=== PATIENT | female | born 1935 | race Caucasian/White ===

== ENCOUNTER → 2020-08-15 | Outpatient (CLI) | payer MEDICARE ==
[2020-06-24 15:00] VITALS: BP 132/50
[~2020-08-15] MED LIST: AMLO-186 PO; ASPI-886 PO; CALC500T54 PO; CITA40TA5 PO; DILT120C99 PO; FAMO-63 PO; LEVO125T5 PO; LOSA100T14 PO; REGADENOSON 0.4 MG/5 ML DISP.SYRIN. IV ONE; Vit D PO
--- NOTE | 2020-08-15 12:20 | CARD ---
MR#: [id number] Date of Study: 08/15/2020 Ordering Physician: STANLEY PERERA, Referring Physician: STANLEY PERERA Tech: Pamela Moran [facility] APPROVED REPORT EXAM: Two-dimensional and M-mode echocardiogram with Doppler and color Doppler. Other Information Quality : AverageHR: 98bpm Rhythm : PVC's INDICATION Chest Pain RISK FACTORS Hypertension 2D DIMENSIONS RVDd3.1 (2.9-3.5cm)Left Atrium(2D)3.6 (1.6-4.0cm) IVSd1.2 (0.7-1.1cm)Aortic Root(2D)2.8 (2.0-3.7cm) LVDd3.6 (3.9-5.9cm)LVOT Diameter1.9 (1.8-2.4cm) PWd1.1 (0.7-1.1cm)LVDs2.8 (2.5-4.0cm) FS (%) 23.3 %SV25.9 ml LVEF(%)47.6 (>50%) Aortic Valve AoV Peak Eder.136.6cm/Alexsandra Peak GR.9.3mmHg LVOT Peak Eder.98.3cm/sAVA (VMAX)2.00cm2 Mitral Valve MV E Hkfmkgzn610.8cm/sMV DECEL PQZD677te MV A Yepjgfye06.4cm/sE/A Ratio4.0 Pulmonary Valve PV Peak Esrribmx49.0cm/s Tricuspid Valve TR P. Djffjroe005eq/sTR Peak Gr.31mmHg LEFT VENTRICLE The left ventricle is normal size. There is normal left ventricular wall thickness. The left ventricu lar systolic function is normal and the ejection fraction is within normal range. Estimated ejection fraction 60-65%. There is normal LV segmental wall motion. Tissue Doppler imaging reveals moderate le ft ventricular diastolic dysfunction. No left ventricle thrombus noted on this study. RIGHT VENTRICLE The right ventricle is normal size. There is normal right ventricular wall thickness. The right ventr icular systolic function is normal. ATRIA The left atrium is borderline dilated. The right atrium size is normal. Cannot rule out small atrial level defect/shunt based on color doppler evaluation. Agitated saline was not administered. AORTIC VALVE The aortic valve is not well visualized. Cannot rule out partial bicuspid valve. Doppler and Color Fl ow revealed no significant aortic regurgitation. There is no significant aortic valvular stenosis. MITRAL VALVE The mitral valve is normal in structure and function. There is no evidence of mitral valve prolapse. There is no mitral valve stenosis. Doppler and Color Flow revealed no mitral valve regurgitation note d. TRICUSPID VALVE The tricuspid valve is normal in structure and function. Doppler and Color Flow revealed mild tricusp id regurgitation. Estimated PAP 34 mmHg. There is no tricuspid valve stenosis. PULMONIC VALVE Doppler and Color Flow revealed no pulmonic valvular regurgitation. There is no pulmonic valvular esperanza nosis. GREAT VESSELS The aortic root is normal in size. The ascending aorta is normal in size. The IVC is normal in size a nd collapses >50% with inspiration. PERICARDIAL EFFUSION There is no evidence of significant pericardial effusion. Critical Notification Critical Value: No <Conclusion> The left ventricular systolic function is normal and the ejection fraction is within normal range. E stimated ejection fraction 60-65%. There is normal LV segmental wall motion. Cannot rule out small atrial level defect/shunt based on color doppler evaluation. Agitated saline wa s not administered. The aortic valve is not well visualized. Cannot rule out partial bicuspid valve. There is no signific ant aortic valvular stenosis. Signed by : Tom Medina, Electronically Approved : 08/15/2020 12:20:15
--- NOTE | 2020-08-15 12:57 | RAD ---
MR#: [id number] Date of Study: 08/15/2020 Ordering Physician: STANLEY PERERA, Referring Physician: WILBERT LEIGH Tech: RT Grzegorz (R) (N) APPROVED REPORT Test Type: Pharmacological Stress Nurse/Tech: HENRY KIM Test Indications: AFIB W/ RVR Cardiac History: HTN, AFIB W/RVR Medications: SEE EMR Medical History: SEE EMR Resting ECG: AFIB Resting Heart Rate: 104 bpm Resting Blood Pressure: 118/73mmHg Pretest Chest Pain: No chest pain Nurse/Tech Notes IRREGULAR RATE, DENIES SOA OR CP, LUNGS CTA, BP WNL. Consent: The procedure was explained to the patient in lay terms. Informed consent was witnessed. Joe eout was entered into [employer]. History and Stress Test performed by JOSI Villegas, KAMALA (R) (N) Pharm. Details Pharmacologic stress testing was performed using 0.4mg per 5ml of regadenoson given intravenously ove r 7-10 seconds. Stress Symptoms PT DENIED SYMPTOMS DURING TESTING. BP WNL, HR IRREGULAR AND REMAINED IN AFIB W/RVR AT TIMES. POST EXERCISE Reason for Termination: Infusion complete Max HR: 133 bpm Max Blood Pressure: 138/72mmHg Blood Pressure response to exercise: Normal blood pressure response during stress. Heart Rate response to exercise: ABNORMAL- DUE TO AFIB Chest Pain: No. Arrhythmia: No. ST Change: No. INTERPRETATION Stress EKG Conclusion: No evidence of stress induced EKG changes. Underlying atrial fibrillation note d. Imaging Protocol IMAGE PROTOCOL: Rest Tc-99m/stress Tc-99m 1 day Rest: Stress: Viability: Radiopharm.Tc99m CwvefcnpuVf37y Sestamibi Dose10.8mCi 31mCi Duration 15min. 10min. Img Date 08/15/2020 08/15/2020 Inj-Img Invx43vus. 90min. Rest Admin Site:IV - Right AntecubitalAdministrator:JOSI Villegas, KAMALA (R)(N) Stress Admin Site: IV - Right AntecubitalAdministrator: Ava Siegel, NMTCB, ARRT (R)(N) STRESS DATA End Diast. Vol.49.0mlAv. Heart Oztf355.0bpm End Syst. Vol.18.0mlCO Index BSA0.0L/min Myocardial Mass93.0gEject. Eakdcqar30.0% Stress Rates Pk. Fill Rate5.56EDV/secLVtime Pk. Fill 178.11msec Pk. Empty Rate4.35ESV/secLVtime Pk. Cybzj853.86msec 08/06 Pk. Fill0.43EDV/sec Stress Scores Regional WT1.00Summed WT16.00 Regional WM0.00Summed WM7.00 The rest and stress images show normal perfusion, normal contraction and thickening. LV Perf. Quant 17 Seg. SSS1.00 17 Seg. SRS0.00 17 Seg. SDS1.00 Stress Defect Extent (% LAD)0.00Rest Defect Extent (% LAD)0.00Rev. Defect Extent (% LAD)0.00 Stress Defect Extent (% LCX) 0.00Rest Defect Extent (% LCX)0.00Rev. Defect Extent (% LCX)0.00 Stress Defect Extent (% RCA)0.00Rest Defect Extent (% RCA)0.00Rev. Defect Extent (% RCA)0.00 Stress Defect Extent (% MENDEZ)0.00Rest Defect Extent (% MENDEZ)0.00Rev. Defect Extent (% MENDEZ)0.00 Other Information Quality:Good Risk Assessment: Low Risk Conclusion 1. No evidence of stress induced EKG changes. Baseline rhythm is atrial fibrillation. 2. Normal perfusion at stress/rest. 3. Normal EF at > 55% 4. Low risk study overall. Signed by : Tom Medina, Electronically Approved : 08/15/2020 12:56:33
== END ==
LOC: NM 08:16
PROVIDERS: ATTEND Internal Medicine Cardiovascular Disease
DX: I07.1 Rheumatic tricuspid insufficiency (principal); I11.9 Hypertensive heart disease without heart failure; I48.91 Unspecified atrial fibrillation
CPT/HCPCS: 78452; 93017; 93306; A9500; J2785

== ENCOUNTER → 2020-08-16 | Outpatient (CLI) | payer MEDICARE ==
[2020-06-24 15:00] VITALS: BP 132/50
[~2020-08-16] MED LIST changes: -REGADENOSON 0.4 MG/5 ML DISP.SYRIN. IV ONE
== END ==
LOC: LAB 11:47
PROVIDERS: ATTEND Internal Medicine Cardiovascular Disease
DX: Z01.812 Encounter for preprocedural laboratory examination (principal); Z20.822 Contact with and (suspected) exposure to COVID-19
CPT/HCPCS: U0003

== ENCOUNTER 2020-08-18 07:04 | Inpatient (IN) | payer MEDICARE ==
[~2020-08-18] VITALS: Ht 160 cm; Wt 74.3 kg
[2020-08-18] VITALS (22 sets, daily range): BP systolic 90–153; BP diastolic 26–78
[2020-08-18] MEDS ORDERED: VANCOMYCIN 1GM IVPB FOR OMNI 250 ML IV ONE (07:30)
[2020-08-18] MEDS ORDERED: BACITRACIN 50,000 UNIT in IV NORMAL SALINE 250ML 250 ML IRR ONE (07:30)
[2020-08-18] MEDS ORDERED: LIDOCAINE 2%/EPI 1:100,000 20 ML VIAL. ONE (07:37)
[2020-08-18] MEDS ORDERED: AMLO-186 PO (07:48)
--- NOTE | 2020-08-18 07:51 | EKG ---
[facility] [address] [place] [address] Test Date: 2020-08-18 Test Time: 07:48:20 Pat Name: MARTA PIMENTEL Department: Room: Gender: F Financial Agent: ASHER : [id number] Requested By: STANLEY PERERA Order Number: [id number] Reading MD: Measurements Intervals [place] Rate: 65 P: 55 MO: 174 QRS: -15 QRSD: 90 T: 41 QT: 446 QTc: 465 Interpretive Statements SINUS RHYTHM ATRIAL PREMATURE COMPLEX(ES) LEFTWARD AXIS R-S TRANSITION ZONE IN V LEADS DISPLACED TO THE LEFT OTHERWISE NORMAL ECG RI6.02 No previous ECG available for comparison
[2020-08-18] MEDS ORDERED: fentaNYL PF VIAL 100 MCG/2 ML VIAL ONE (07:57)
[2020-08-18] MEDS ORDERED: MIDAZOLAM HCL/PF 2 MG/2 ML VIAL. ONE (07:57)
[2020-08-18 07:58] LABS: CALCIUM 9.2 mg/dL (8.5-10.1); CREATININE 0.8 mg/dL (0.6-1.0); GFR 68.3; POTASSIUM 3.9 mmol/L (3.5-5.1)
[2020-08-18 08:00] LABS: HEMATOCRIT 38.6 % (36.0-47.0); HEMOGLOBIN 12.8 g/dL (12.0-15.5); RED BLOOD COUNT 4.19 x10^6/uL (3.50-5.40); RED CELL DISTRIBUTION WIDTH 12.5 % (11.5-14.5); WHITE BLOOD COUNT 5.4 x10^3/uL (4.0-11.0)
[2020-08-18] MEDS ORDERED: MIDAZOLAM HCL/PF 2 MG/2 ML VIAL. IV ONE (08:00)
[2020-08-18] MEDS ORDERED: LIDOCAINE 2%/EPI 1:100,000 20 ML VIAL. IJ ONE (08:00)
[2020-08-18] MEDS ORDERED: VANCOMYCIN 1GM IVPB FOR OMNI 250 ML ONE (08:03)
[2020-08-18 08:16] LABS: PROTHROMBIN TIME PATIENT 13.2 SEC (11.7-14.0)
[2020-08-18] MEDS: fentaNYL PF VIAL 100 MCG/2 ML VIAL IV ONE (08:41)
--- NOTE | 2020-08-18 09:34 | PDOC ---
MODERATE SEDATION ASSESSMENT RISKS/ALTERNATIVES Risks/Alternatives Risks and alternatives of this type of sedation and procedure discussed with: RISK/ALTERNATIVES: Patient H & P ON CHART H & P H & P on chart and reviewed for co-morbid conditions and appropriate labs. H&P ON CHART: Yes STATUS PREG STATUS ASSESSED: N/A MEDS/ALLERGIES REVIEWED Meds/Allergies Reviewed Medications and Allergies including time and route of recently administered narcotics and sedatives. MEDS/ALLERGIES REVIEWED: Yes ASA RATING ASA RATING: II AIRWAY ASSESSMENT Airway Assessment Airway patency, oral function limitations, presence of caps, crowns, dentures, partials, and ability to extend neck assessed. AIRWAY ASSESSMENT: Yes MALLAMPATI SCORE MALLAMPATI SCORE: II PRE-SEDATION ASSESSMENT PRE-SEDATION ASSESSMENT: Yes STANLEY PERERA MD Aug 18, 2020 09:34
[2020-08-18] MEDS ORDERED: oxyCODONE/APAP 5/325 1 TAB TABLET PO PRN (09:45)
--- NOTE | 2020-08-18 09:45 | CARD ---
MR#: [id number] Date of Study: 08/18/2020 Ordering Physician: STANLEY OROPEZA, Referring Physician: STANLEY OROPEZA, Tech: APPROVED REPORT PROCEDURES Implantation of Biotronik dual-chamber permanent pacemaker Sedation Time: 50 Minutes Fluioro Time: 1.8 Minutes Dose: 3.03 Gycm2 Estimated blood loss: 10 ml INDICATIONS Tachycardia-bradycardia syndrome, sick sinus syndrome PROCEDURE After explaining the risks, benefits, and alternative options, informed consent was obtained from the patient. The patient was brought to the cardiac catheterization lab and the left chest and shoulder were prepp ed and draped in a sterile manner. 30 cc of 2% lidocaine was infiltrated into the skin and subcutaneous tissues for local anesthesia. A n incision was made over the left infraclavicular fossa and using blunt dissection and cautery, a poc ket was created. Venous access was obtained in the left subclavian vein and 8 and 6 Sammarinese sheaths i nserted. A Biotronik bipolar active fixation right ventricular lead model Solia, serial #[id number] was advanc ed under fluoroscopic guidance and the tip was positioned in the right ventricular apex. Following t his, a Biotronik bipolar active fixation right atrial lead model Solia, serial #[id number] was positi oned in the right atrial appendage under fluoroscopic guidance. The leads were secured into place an d were attached to a Biotronik dual-chamber permanent pacemaker generator model Edora 8 DR-T, serial #[id number]. This was placed in the pocket that was subsequently closed in 3 layers. Hemostasis was s ecured. The right ventricular lead showed a sensing amplitude of 7 mV, impedance of 710 ohms and a threshold of 0.6 V. The right atrial lead showed a sensing amplitude of 3.5 mV, impedance of 505 ohms and a th reshold of 0.9 V. Patient tolerated the procedure well. There were no immediate complications. CONCLUSION Successful implantation of Biotronik dual-chamber permanent pacemaker for symptomatic tachycardia-bra dycardia/sick sinus syndrome. Signed by : Stanley Oropeza, Electronically Approved : 08/18/2020 09:44:47
--- NOTE | 2020-08-18 10:40 | RAD ---
Single AP view of the chest. Comparison: 06/23/2020. Indication: Postop pacemaker Findings: Left subclavian pacemaker seen with leads overlying the right atrium and ventricle. The heart is enla rged but stable, the aorta is calcified and tortuous. There is no pneumothorax or effusion. No air s pace or interstitial disease. Impression: 1. No acute cardiopulmonary process. 2. No immediate complications are seen following pacemaker implantation. Electronically signed by: Dawit Lew MD (08/18/2020 10:38 AM) [id number]
--- NOTE | 2020-08-18 11:18 | NUR ---
Patient stable. VS WNL. On RA. Report given to Edilma FIGUEROA on 2N. Patient's daughter, Diana, went home after procedure. Will return later this afternoon. Her phone number is [phone]. Patient transferred to room 211 via bed.
[2020-08-18] MEDS: VANCOMYCIN 1 GM in IV DEXTROSE 5% 250 ML IV ONE ×2 (21:45→21:47)
--- NOTE | 2020-08-18 21:46 | NUR ---
Vancomycin dose given per Administer dose option as unable to scan bar code.
[2020-08-19 03:05] VITALS: BP 146/69
[2020-08-19] MEDS ORDERED: LEVOTHYROXINE 125 MCG TABLET PO SCH (06:00)
[2020-08-19 07:00] VITALS: BP 146/68
[2020-08-19] MEDS ORDERED: LOSARTAN POTASSIUM 50 MG TABLET. PO SCH (09:00)
[2020-08-19] MEDS ORDERED: CITALOPRAM HYDROBROMIDE PO SCH (09:00)
[2020-08-19] MEDS ORDERED: ASPIRIN ENTERIC COATED 81 MG TABLET.DR. PO SCH (09:00)
[2020-08-19] MEDS ORDERED: CITALOPRAM 20 MG TABLET. PO SCH (09:00)
--- NOTE | 2020-08-19 09:52 | RAD ---
Study: XR CHEST 2V Indication: Status post pacemaker placement. Comparison: 08/18/2020 Findings: Unchanged left chest wall dual-lead pacer. The cardiomediastinal silhouette is again noted to be at the upper limits of normal for size. Similar configuration of the kasey. Aortic atherosclerotic calcifications. Persistent though slightly decreased generalized increased interstitial markings. The right costophre lee angle remains blunted. No pneumothorax identified on either side. Impression: No pneumothorax. Tiny right pleural effusion. Electronically signed by: FAISAL ELIZABETH MD (08/19/2020 9:49 AM) [id number]
[2020-08-19 10:52] VITALS: BP 127/58
--- NOTE | 2020-08-19 11:15 | PDOC3 ---
Discharge Summary Visit Information Date of Admission: Aug 18, 2020 Date of Discharge: Aug 19, 2020 Admitting Diagnosis: Sick sinus syndrome Final Diagnosis Sick sinus syndrome Tachycardia-bradycardia syndrome Paroxysmal atrial fibrillation Hypertension Hypothyroidism Brief Hospital Course Allergies Allergies Coded Allergies Type Severity Reaction Last Updated Verified Penicillins Allergy Intermediate 06/24/20 Yes erythromycin base Allergy Intermediate 06/24/20 Yes sulfamethoxazole Allergy Intermediate 06/24/20 Yes trimethoprim Allergy Intermediate 06/24/20 Yes Vital Signs Vital Signs Date Time Temp Pulse Resp B/P (MAP) Pulse Ox O2 Delivery O2 Flow Rate FiO2 08/19/20 10:52 98.4 77 17 127/58 (81) 96 Room Air 98.4 08/18/20 09:32 2.0 Lab Results Laboratory Tests Test 08/18/20 07:28 White Blood Count 5.4 x10^3/uL (4.0-11.0) Red Blood Count 4.19 x10^6/uL (3.50-5.40) Hemoglobin 12.8 g/dL (12.0-15.5) Hematocrit 38.6 % (36.0-47.0) Mean Corpuscular Volume 92 fL (79-100) Mean Corpuscular Hemoglobin 31 pg (25-35) Mean Corpuscular Hemoglobin Concent 33 g/dL (31-37) Red Cell Distribution Width 12.5 % (11.5-14.5) Platelet Count 284 x10^3/uL (140-400) Prothrombin Time 13.2 SEC (11.7-14.0) Prothromb Time International Ratio 1.0 (0.8-1.1) Sodium Level 140 mmol/L (136-145) Potassium Level 3.9 mmol/L (3.5-5.1) Chloride Level 106 mmol/L (98-107) Carbon Dioxide Level 29 mmol/L (21-32) Anion Gap 5 (6-14) Blood Urea Nitrogen 16 mg/dL (7-20) Creatinine 0.8 mg/dL (0.6-1.0) Estimated GFR (Cockcroft-Gault) 68.3 Glucose Level 95 mg/dL (70-99) Calcium Level 9.2 mg/dL (8.5-10.1) Brief Hospital Course Ms. Ramos is a 85 old who was recently diagnosed with paroxysmal atrial fibr illation monitor recording secondary to intermittent dizzy spells. She was found to have episodes of atrial fibrillation with rapid ventricular response and severe bradycardia with significant pauses that were asymptomatic, consistent with tachycardia-bradycardia/sick sinus syndrome. She underwent successful Biotronik dual-chamber permanent pacemaker implantation. He remained hemodynamically stable during her hospital stay. Her incision look good, chest x-ray did not show any pneumothorax and device interrogation showed normal function prior to discharge. She will follow-up with our office for wound check in 2 weeks. Discharge Information Condition at Discharge: Stable Follow Up: Weeks (2) Disposition/Orders: D/C to Home Scheduled Amlodipine Besylate (Amlodipine Besylate) 5 Mg Tablet, 5 MG PO DAILY for htn, (Reported) Entered as Reported by: RUTH BUCKNER on 08/18/20 0748 Last Taken: Unknown Dose on 08/17/20 Last Action: Continued on 08/18/20 163 by ERIN HATCH Aspirin (Aspirin Ec) 81 Mg Tablet.dr, 1 TAB PO DAILY for heart, #30 Ref 3 (Reported) Entered as Reported by: Phong Mcmahan on 06/24/20 1134 Last Taken: Unknown Dose on 08/18/20 Last Action: Continued on 08/18/20 163 by ERIN HATCH Calcium Carbonate (Calcium) 500 Mg Tab.chew, 1 TAB PO DAILY for bone for 30 Days, #30 Ref 0 (Reported) Entered as Reported by: Phong Mcmahan on 06/24/20 1133 Last Taken: Unknown Dose on 08/17/20 Last Action: Converted on 08/18/20 163 by ERIN HATCH Citalopram Hydrobromide (Citalopram Hbr) 40 Mg Tablet, 40 TAB PO DAILY for antidepressant, #90 Ref 1 (Reported) Entered as Reported by: Phong Mcmahan on 06/24/20 1133 Last Taken: Unknown Dose on 08/17/20 Last Action: Converted on 08/18/201630 by ERIN HATCH Diltiazem Hcl (Diltiazem 24HR Cd) 120 Mg Cap.er.24h, 1 CAP PO DAILY for heartrate control for 30 Days, #30 Ref 0 (Reported) Entered as Reported by: Phong Mcmahan on 06/24/20 1752 Last Taken: Unknown Dose on 08/18/20 Last Action: Continued on 08/18/20 163 by ERIN HATCH Levothyroxine Sodium (Levothyroxine Sodium) 125 Mcg Tablet, 1 TAB PO DAILY for thyroid, #30 Ref 5 (Reported) Entered as Reported by: Phong Mcmahan on 06/24/201132 Last Taken: Unknown Dose on 08/18/20 Last Action: Continued on 08/18/20 1631 by ERIN HATCH Losartan Potassium (Losartan Potassium) 100 Mg Tablet, 100 MG PO DAILY for H YPERTENSION, (Reported) Entered as Reported by: Phong Mcmahan on 06/24/201132 Last Taken: Unknown Dose on 08/17/20 Last Action: Converted on 08/18/201630 by ERIN HATCH Scheduled PRN [Vit D] , 1,000 MG PO for daily, (Reported) Entered as Reported by: Phong Mcmahan on 06/24/201132 Last Taken: Unknown Dose on 08/17/20 Last Action: Reviewed on 08/18/20 0748 by RUTH BUCKNER Discontinued Medications Famotidine (Pepcid) 20 Mg Tablet, 20 MG PO HS for acid, (Reported) Entered as Reported by: Phong Mcmahan on 06/24/201132 Last Action: Discontinued on 08/18/20 0748 by RUTH BUCKNER Justicifation of Admission Dx: Justifications for Admission: Justification of Admission Dx: Yes CHF: Cardiac Arrhythmias STANLEY PERERA MD Aug 19, 2020 11:15
--- NOTE | 2020-08-19 15:33 | NUR ---
Discharge Note: MARTA PIMENTEL Discharge instructions and discharge home medications reviewed with Patient and a copy given. All questions have been answered and understanding verbalized. The following instructions and handouts were given: HENRY Johnson did DC teaching with patient. Discontinued lines and drains: IV removed. No lines present at discharge. Patient discharged to home. Ambulated to her [facility] [employer].
== END 2020-08-19 14:00 | disposition home or self-care (01) | DRG 244 ==
LOC: CCL 07:04 → 2 NORTH 08:15 → CVICU 09:47 → 2 NORTH 09:52
PROVIDERS: ADMIT Internal Medicine Cardiovascular Disease; ATTEND Internal Medicine Cardiovascular Disease
PROC: 0JH606Z Insertion of Pacemaker, Dual Chamber into Chest Subcutaneous Tissue and Fascia, Open Approach (ICD-10-PCS; principal; 2020-08-18)
PROC: 02H63JZ Insertion of Pacemaker Lead into Right Atrium, Percutaneous Approach (ICD-10-PCS; 2020-08-18)
PROC: 02HK3JZ Insertion of Pacemaker Lead into Right Ventricle, Percutaneous Approach (ICD-10-PCS; 2020-08-18)
PROC: 4B02XSZ Measurement of Cardiac Pacemaker, External Approach (ICD-10-PCS; 2020-08-19)
DX: I49.5 Sick sinus syndrome (principal); I48.0 Paroxysmal atrial fibrillation; E03.9 Hypothyroidism, unspecified; I10 Essential (primary) hypertension; Z88.0 Allergy status to penicillin; Z88.2 Allergy status to sulfonamides; Z88.8 Allergy status to other drugs, medicaments and biological substances; G47.30 Sleep apnea, unspecified; F32.9 Major depressive disorder, single episode, unspecified; M48.061 Spinal stenosis, lumbar region without neurogenic claudication; M85.80 Other specified disorders of bone density and structure, unspecified site
CPT/HCPCS: 33208; 36415; 71045; 71046; 80048; 85027; 85610; 93005; 99152; 99153; C1785; J2250; J3010; J3370; J3490; J7050; J7060; G0378; J7030

== ENCOUNTER 2021-02-22 13:26 | Emergency (ER) | payer MEDICARE ==
[~2021-02-22] VITALS: Ht 160 cm; Wt 71.3 kg
[2021-02-22 14:37] LABS: BILIRUBIN,URINE NEGATIVE (NEG); CLARITY,URINE CLEAR; COLOR,URINE YELLOW; NITRITE,URINE NEGATIVE (NEG); PH,URINE 5.5 (<5.0-8.0); PROTEIN,URINE NEGATIVE (NEG-TRACE); UROBILINOGEN,URINE 0.2 mg/dL (0.2 mg/dL)
[2021-02-22 14:51] LABS: BASO % 1 % (0-3); EOS # 0.1 x10^3/uL (0.0-0.7); EOS % 2 % (0-3); HEMATOCRIT 37.8 % (36.0-47.0); HEMOGLOBIN 12.9 g/dL (12.0-15.5); LYMPH # 1.8 x10^3/uL (1.0-4.8); LYMPH % 31 % (24-48); MEAN CORPUSCULAR HEMOGLOBIN 31 pg (25-35); MEAN CORPUSCULAR HGB CONC 34 g/dL (31-37); MEAN CORPUSCULAR VOLUME 91 fL (79-100); MONO # 0.6 x10^3/uL (0.0-1.1); MONO % 10 % (0-9); NEUT # 3.5 x10^3/uL (1.8-7.7); NEUT % 58 % (31-73); PLATELET COUNT 230 x10^3/uL (140-400); RED BLOOD COUNT 4.15 x10^6/uL (3.50-5.40); RED CELL DISTRIBUTION WIDTH 12.8 % (11.5-14.5)
[2021-02-22 15:01] LABS: CALCIUM 9.1 mg/dL (8.5-10.1); CREATININE 0.7 mg/dL (0.6-1.0); GFR 79.7; POTASSIUM 3.8 mmol/L (3.5-5.1)
[2021-02-22 15:02] LABS: BACTERIA,URINE FEW /HPF (0-FEW)
[2021-02-22 15:03] LABS: RBC,URINE 0 /HPF (0-2)
[2021-02-22 15:07] LABS: ALBUMIN 3.7 g/dL (3.4-5.0); ALBUMIN/GLOBULIN RATIO 1.2 (1.0-1.7); MAGNESIUM 2.1 mg/dL (1.8-2.4); TOTAL BILIRUBIN 0.3 mg/dL (0.2-1.0); TOTAL PROTEIN 6.7 g/dL (6.4-8.2)
[2021-02-22 15:48] LABS: BARBITURATES NEG (NEG); BENZODIAZEPINES NEG (NEG); CANNABINOIDS NEG (NEG); COCAINE NEG (NEG); METHADONE NEG (NEG); OPIATES NEG (NEG); PHENCYCLIDINE NEG (NEG)
--- NOTE | 2021-02-22 15:50 | RAD ---
CT HEAD INDICATION: Dizziness, headache COMPARISON: None Available. Exposure: One or more of the following individualized dose reduction techniques were utilized for thi s examination: 1. Automated exposure control 2. Adjustment of the mA and/or kV according to patient size 3. Use of iterative reconstruction technique TECHNIQUE: 5 mm contiguous axial images were obtained from the skull base to the vertex in both bone and soft tissue algorithm. FINDINGS: There is a 2.1 cm hyperdensity identified in the inferior aspect of the anterior falx. No evidence of acute intracranial hemorrhage. No midline shift. Ventricular size is appropriate. Basal cisterns are patent. No fractures identified.Bardales-white differentiation is preserved.Globes and orbits are within normal l imits. Complete opacification the left sphenoid sinus likely sinus disease... IMPRESSION: 1. A 2.1 cm hyperdense mass identified in the inferior aspect of the anterior falx nonspecific could be a meningioma or mass. Recommend MRI for further evaluation. Electronically signed by: Ramon Calvin MD (02/22/2021 3:47 PM) [id number]
[2021-02-22 15:59] LABS: AMPHETAMINE/METHAMPHETAMINE NEG (NEG)
--- NOTE | 2021-02-22 15:59 | RAD ---
XR CHEST 1V History: Reason: chest pain / Spl. Instructions: / History: Comparison: August 19, 2020 Findings: No consolidation. Normal heart size. No pneumothorax. Small right pleural effusion, unchanged. Stable left sided pacemaker. Impression: 1. Small right pleural effusion, unchanged. Electronically signed by: Pascual Siegel DO (02/22/2021 3:57 PM) [id number]
[2021-02-22 16:01] LABS: ACETAMIN < 2 mcg/ml (10-30); ETHANOL < 10 mg/dL (0-10); SALIC < 2.8 mg/dL (2.8-20.0)
--- NOTE | 2021-02-22 17:41 | ED.ADGEN ---
Past Medical History Past Medical History: Depression, Hypertension, Hypothyroid, Pneumonia Additional Past Medical Histor: LICHEN PLANUS. MACULAR DEGENERATION, KEITH, OA, BROKEN RIGHT ANKLE Past Surgical History: Cholecystectomy, Hysterectomy, Other Additional Past Surgical Histo: rectocele, bladder sling Smoking Status: Never Smoker Alcohol Use: None General Adult EDM: Chief Complaint: WEAKNESS/GENERALIZED HPI: HPI: Patient is a 85 year old female who presents to the emergency department, accompanied by her daughter with complaints of intermittent dizziness and weakness since August when she had a pacemaker placed. Patient states she is also been breaking out in sweats recently, her hair in her eyebrows has been falling out and her fingernails have been brittle and dry. Patient states she also feels like she does not have any energy and she is nauseated from time to time. She also reports that she has not been able to hear out of the left ear for several months. Patient states she has received her entire Covid immunization she denies any Covid exposure. She denies any chest pain, palpitations, vomiting, diarrhea, constipation, abdominal pain, dysuria, hematuria, increased urinary frequency. Patient states her symptoms been going on for months and no one can figure out what is wrong with her. She currently denies any pain. Patient states she does take levothyroxine for hypothyroidism she has not been evaluated by an cerner analyst. Patient reports that she recently stopped taking her depression medication but resumed taking it today because she was feeling more depressed than usual. She states that her symptoms began before she stopped taking her depression medication. Review of Systems: Review of Systems: Complete ROS is negative unless otherwise noted in HPI. Allergies: Allergies: Allergies Coded Allergies Type Severity Reaction Last Updated Verified Penicillins Allergy Intermediate 06/24/20 Yes erythromycin base Allergy Intermediate 06/24/20 Yes sulfamethoxazole Allergy Intermediate 06/24/20 Yes trimethoprim Allergy Intermediate 06/24/20 Yes Physical Exam: PE: See Above Constitutional: Well developed, well nourished, no acute distress, non-toxic appearance. [] HENT: Normocephalic, atraumatic, bilateral external ears normal, nose normal. [] Eyes: PERRLA, EOMI, conjunctiva normal, no discharge. [] Neck: Normal range of motion, no stridor. [] Cardiovascular:Heart rate regular rhythm Lungs & Thorax: Respirations even and unlabored, no retractions, no respiratory distress, lungs CTA Abdomen: soft, no tenderness Skin: Warm, dry, no erythema, no rash. [] Extremities: No cyanosis, ROM intact, no edema. [] Neurologic: Alert and oriented X 3, normal motor, normal sensory, no focal deficits noted. [] Psychologic: Affect normal, judgement normal, mood normal. [] Current Patient Data: Labs: Laboratory Tests Test 02/22/21 14:00 02/22/21 14:35 Urine Collection Type Void Urine Color Yellow Urine Clarity Clear Urine pH 5.5 (<5.0-8.0) Urine Specific [place] 1.020 (1.000-1.030) Urine Protein Negative mg/dL (NEG-TRACE) Urine Glucose (UA) Negative mg/dL (NEG) Urine Ketones (Stick) Negative mg/dL (NEG) Urine Blood Negative (NEG) Urine Nitrite Negative (NEG) Urine Bilirubin Negative (NEG) Urine Urobilinogen Dipstick 0.2 mg/dL (0.2 mg/dL) Urine Leukocyte Esterase Small (NEG) Urine RBC 0 /HPF (0-2) Urine WBC 1-4 /HPF (0-4) Urine Squamous Epithelial Cells Few /LPF Urine Bacteria Few /HPF (0-FEW) Urine Mucus Mod /LPF Urine Opiates Screen Neg (NEG) Urine Methadone Screen Neg (NEG) Urine Barbiturates Neg (NEG) Urine Phencyclidine Screen Neg (NEG) Urine Amphetamine/Methamphetamine Neg (NEG) Urine Benzodiazepines Screen Neg (NEG) Urine Cocaine Screen Neg (NEG) Urine Cannabinoids Screen Neg (NEG) Urine Ethyl Alcohol Neg (NEG) White Blood Count 6.0 x10^3/uL (4.0-11.0) Red Blood Count 4.15 x10^6/uL (3.50-5.40) Hemoglobin 12.9 g/dL (12.0-15.5) Hematocrit 37.8 % (36.0-47.0) Mean Corpuscular Volume 91 fL (79-100) Mean Corpuscular Hemoglobin 31 pg (25-35) Mean Corpuscular Hemoglobin Concent 34 g/dL (31-37) Red Cell Distribution Width 12.8 % (11.5-14.5) Platelet Count 230 x10^3/uL (140-400) Neutrophils (%) (Auto) 58 % (31-73) Lymphocytes (%) (Auto) 31 % (24-48) Monocytes (%) (Auto) 10 % (0-9) H Eosinophils (%) (Auto) 2 % (0-3) Basophils (%) (Auto) 1 % (0-3) Neutrophils # (Auto) 3.5 x10^3/uL (1.8-7.7) Lymphocytes # (Auto) 1.8 x10^3/uL (1.0-4.8) Monocytes # (Auto) 0.6 x10^3/uL (0.0-1.1) Eosinophils # (Auto) 0.1 x10^3/uL (0.0-0.7) Basophils # (Auto) 0.0 x10^3/uL (0.0-0.2) Sodium Level 142 mmol/L (136-145) Potassium Level 3.8 mmol/L (3.5-5.1) Chloride Level 106 mmol/L (98-107) Carbon Dioxide Level 27 mmol/L (21-32) Anion Gap 9 (6-14) Blood Urea Nitrogen 18 mg/dL (7-20) Creatinine 0.7 mg/dL (0.6-1.0) Estimated GFR (Cockcroft-Gault) 79.7 BUN/Creatinine Ratio 26 (6-20) H Glucose Level 102 mg/dL (70-99) H Lactic Acid Level 0.8 mmol/L (0.4-2.0) Calcium Level 9.1 mg/dL (8.5-10.1) Magnesium Level 2.1 mg/dL (1.8-2.4) Total Bilirubin 0.3 mg/dL (0.2-1.0) Aspartate Amino Transferase (AST) 23 U/L (15-37) Alanine Aminotransferase (ALT) 31 U/L (14-59) Alkaline Phosphatase 86 U/L (46-116) Creatine Kinase 80 U/L (26-192) Creatine Kinase MB (Mass) 2.1 ng/mL (0.0-3.6) Creatine Kinase MB Relative Index 2.6 % (0-4) Troponin I Quantitative < 0.017 ng/mL (0.000-0.055) Total Protein 6.7 g/dL (6.4-8.2) Albumin 3.7 g/dL (3.4-5.0) Albumin/Globulin Ratio 1.2 (1.0-1.7) Lipase 149 U/L (73-393) Thyroid Stimulating Hormone (TSH) 0.069 uIU/mL (0.358-3.74) L Salicylates Level < 2.8 mg/dL (2.8-20.0) L Salicylate Last Dose Date Unk Salicylate Last Dose Time Unk Acetaminophen Level < 2 mcg/ml (10-30) L Acetaminophen Last Dose Date Unk Acetaminophen Last Dose Time Unk Ethyl Alcohol Level < 10 mg/dL (0-10) Laboratory Tests 02/22/21 14:35 Laboratory Tests 02/22/21 14:35 Vital Signs: Vital Signs Date Time Temp Pulse Resp B/P (MAP) Pulse Ox O2 Delivery O2 Flow Rate FiO2 02/22/21 17:53 74 20 147/64 (91) 97 Room Air 02/22/21 14:10 98.4 98.4 EKG: EK-sinus rhythm with PACs, leftward axis, rate 70, no STEMI, read by Dr. Horner[] Heart Score: C/O Chest Pain: No Radiology/Procedures: Radiology/Procedures: PROCEDURE: CT HEAD WO CONTRAST CT HEAD INDICATION: Dizziness, headache COMPARISON: None Available. Exposure: One or more of the following individualized dose reduction techniques were utilized for this examination: 1. Automated exposure control 2. Adjustment of the mA and/or kV according to patient size 3. Use of iterative reconstruction technique TECHNIQUE: 5 mm contiguous axial images were obtained from the skull base to the vertex in both bone and soft tissue algorithm. FINDINGS: There is a 2.1 cm hyperdensity identified in the inferior aspect of the anterior falx. No evidence of acute intracranial hemorrhage. No midline shift. Ventricular size is appropriate. Basal cisterns are patent. No fractures identified.Bardales-white differentiation is preserved.Globes and orbits are within normal limits. Complete opacification the left sphenoid sinus likely sinus disease... IMPRESSION: 1. A 2.1 cm hyperdense mass identified in the inferior aspect of the anterior falx nonspecific could be a meningioma or mass. Recommend MRI for further evaluation. PROCEDURE: CHEST AP ONLY XR CHEST 1V History: Reason: chest pain / Spl. Instructions: / History: Comparison: August 19, 2020 Findings: No consolidation. Normal heart size. No pneumothorax. Small right pleural effusion, unchanged. Stable left sided pacemaker. Impression: 1. Small right pleural effusion, unchanged. Electronically signed by: Pascual Siegel DO (02/22/2021 3:57 PM) [id number] [] Course & Med Decision Making: Course & Med Decision Making Pertinent Labs and Imaging studies reviewed. (See chart for details) Patient is a 85-year-old female who presents emergency department with multiple complaints in the ER. During her discussion with above documented with nursing staff patient admitted to having suicidal thoughts. The PET team came out and evaluated the patient and developed a safety plan for the patient. Patient did not need to be admitted for psychiatric treatment. Work-up included labs, EKG, and CT of the patient's head. CT of the patient's head revealed a 2.1 cm hypodense lesion in her brain, the patient stated that this is nothing new and is being followed by a specialist already. CBC, CMP, and cardiac enzymes were all within normal levels, the patient was TSH was noted to be low at 0.069. Patient takes levothyroxine, I instructed her to call her primary care doctor in the morning to have this dose adjusted as it is not the correct dose. I advised her that her symptoms are likely due to thyroid. I instructed her to return to the ER if symptoms worsen or fever develops. pt and her daughter verbalized an understanding of home care, medications, follow-up, and return to ED instructions and were in agreement with the plan of care. [] Vitaon Disclaimer: Dragfrancesco Disclaimer: This electronic medical record was generated, in whole or in part, using a voice recognition dictation system. Departure Departure Impression: Primary Impression: Abnormal TSH Disposition: 01 HOME / SELF CARE / HOMELESS Condition: STABLE Referrals: CEE RODRIGUEZ MD (PCP) Patient Instructions: Thyroid-Stimulating Hormone Additional Instructions: Your TSH is 0.069 today with lab work, call Dr. Rodriguez's office in the morning as your levothyroxine dosage needs to be adjusted. Return to the ER if symptoms worsen. JASPER CARMONA APRN Feb 22, 2021 17:41
[2021-02-22 17:53] VITALS: BP 147/64
== END 2021-02-22 17:55 | disposition home or self-care (01) ==
LOC: ER 13:26
DX: R94.6 Abnormal results of thyroid function studies (principal); R42 Dizziness and giddiness; R53.1 Weakness; I10 Essential (primary) hypertension; E03.9 Hypothyroidism, unspecified; Z90.49 Acquired absence of other specified parts of digestive tract; Z90.710 Acquired absence of both cervix and uterus; Z88.0 Allergy status to penicillin; Z88.1 Allergy status to other antibiotic agents; Z88.2 Allergy status to sulfonamides
CPT/HCPCS: 36415; 70450; 71045; 80053; 80307; 80329; 81001; 82553; 83605; 83690; 83735; 84443; 84484; 85025; 87086; 93005; 99285; G0480

== ENCOUNTER 2021-06-08 15:57 | Emergency (ER) | payer MEDICARE ==
[~2021-06-08] VITALS: Ht 162.6 cm; Wt 72.2 kg
[~2021-06-08 15:57] MED LIST changes: -CITA40TA5 PO; +CITA40TA6 PO
--- NOTE | 2021-06-08 16:24 | RAD ---
Exam: Left wrist 3 views INDICATION: Pain and deformity after fall TECHNIQUE: Frontal, lateral oblique views of the left wrist Comparisons: None FINDINGS: Impacted fracture of the distal left radial metaphysis with intra-articular extension which is mildly displaced. There is surrounding soft tissue swelling. Diffuse osteopenia. Mildly displaced ulnar sty loid fracture also noted. IMPRESSION: 1. Impacted fracture of the distal left radial metaphysis with intra-articular extension. 2. Mildly displaced ulnar styloid fracture. Electronically signed by: Keely Ryan MD (06/08/2021 4:21 PM) PASTORA
--- NOTE | 2021-06-08 16:36 | PHYS DOC ---
Past Medical History Past Medical History: Depression, Hypertension, Hypothyroid, Pneumonia Additional Past Medical Histor: pacemaker (ROCHELLE CASTORENA COMMUNITY DIRECTOR) Past Surgical History: No Surgical History Additional Past Surgical Histo: rectocele, bladder sling (ROCHELLE CASTORENA COMMUNITY DIRECTOR) Smoking Status: Never Smoker Alcohol Use: None (ROCHELLE CASTORENA COMMUNITY DIRECTOR) General Adult EDM: Chief Complaint: MECHANICAL FALL HPI: HPI: Patient is a 86 year old female who presents with was starting her lawnmower today and was having problems with it when she lost her balance and fell forward. She put out her left arm to catch herself. She now has pain, swelling and deformity. Denies any numbness or tingling, focal weakness. Does not have range of motion to the wrist due to the swelling and pain. She came by EMS and they gave her 50mcg fentanyl. Upon arrival she states that the pain is not bad and she does not need any more pain medicine at this time. She does rate her pain a 7 out of 10. Patient has a history of hypertension, hypothyroidism, depression, pacemaker, bladder sling, rectocele. (ROCHELLE CASTORENA COMMUNITY DIRECTOR) Review of Systems: Review of Systems: Constitutional: Denies fever or chills. [] Eyes: Denies change in visual acuity. [] HENT: Denies nasal congestion or sore throat. [] Respiratory: Denies cough or shortness of breath. [] Cardiovascular: Denies chest pain or + left wrist edema. [] GI: Denies abdominal pain, nausea, vomiting, bloody stools or diarrhea. [] : Denies dysuria. [] Musculoskeletal: Denies back pain or + left wrist joint pain. [] Integument: Denies rash. [] Neurologic: Denies headache, focal weakness or sensory changes. [] Endocrine: Denies polyuria or polydipsia. [] Lymphatic: Denies swollen glands. [] Psychiatric: Denies depression or anxiety. [] (ROCHELLE CASTORENA COMMUNITY DIRECTOR) Heart Score: C/O Chest Pain: No (ROCHELLE CASTORENA APRN) Allergies: Allergies: Allergies Coded Allergies Type Severity Reaction Last Updated Verified Penicillins Allergy Intermediate 06/08/21 Yes erythromycin base Allergy Intermediate 06/08/21 Yes sulfamethoxazole Allergy Intermediate 06/08/21 Yes trimethoprim Allergy Intermediate 06/08/21 Yes (ROCHELLE CASTORENA APRN) Physical Exam: PE: Constitutional: Well developed, well nourished, no acute distress, non-toxic appearance. [] HENT: Normocephalic, atraumatic, bilateral external ears normal, oropharynx moist, no oral exudates, nose normal. [] Eyes: PERRLA, EOMI, conjunctiva normal, no discharge. [] Neck: Normal range of motion, no tenderness, supple, no stridor. [] Cardiovascular:Heart rate regular rhythm, no murmur [] Lungs & Thorax: Bilateral breath sounds clear to auscultation [] Abdomen: Bowel sounds normal, soft, no tenderness, no masses, no pulsatile masses. [] Skin: Warm, dry, no erythema, no rash. [] Back: No tenderness, no CVA tenderness. [] Extremities: Left wrist tenderness, no cyanosis, no clubbing, ROM not intact, 2+ edema. [] Neurologic: Alert and oriented X 3, normal motor function, normal sensory function, no focal deficits noted. [] Psychologic: Affect normal, judgement normal, mood normal. [] (ROCHELLE CASTORENA APRN) Current Patient Data: Vital Signs: Vital Signs Date Time Temp Pulse Resp B/P (MAP) Pulse Ox O2 Delivery O2 Flow Rate FiO2 06/08/21 16:00 98.7 71 18 156/63 (94) Room Air 98.7 (ROCHELLE CASTORENA APRN) EKG: EKG: [] (ROCHELLE CASTORENA APRN) Radiology/Procedures: Radiology/Procedures: [] Impression: [facility] [address] [place], [place] [id number] IMAGING REPORT Signed PATIENT: MARTA PIMENTEL ACCOUNT: [id number] : 1935 LOCATION: ER AGE: 86 SEX: F EXAM STATUS: PRE ER ORD. PHYSICIAN: ROCHELLE CASTORENA APRN REASON: PAIN AND DEFORMITY AFTER FALL PROCEDURE: WRIST 3V LEFT Exam: Left wrist 3 views INDICATION: Pain and deformity after fall TECHNIQUE: Frontal, lateral oblique views of the left wrist Comparisons: None FINDINGS: Impacted fracture of the distal left radial metaphysis with intra-articular extension which is mildly displaced. There is surrounding soft tissue swelling. Diffuse osteopenia. Mildly displaced ulnar styloid fracture also noted. IMPRESSION: 1. Impacted fracture of the distal left radial metaphysis with intra-articular extension. 2. Mildly displaced ulnar styloid fracture. Electronically signed by: Keely Lopez MD (06/08/2021 4:21 PM) [facility] DICTATED and SIGNED BY: KEELY LOPEZ MD DATE: 06/08/21 [id number] (ROCHELLE CASTORENA APRN) Radiology/Procedures: Reduction procedure Consent was signed and the patient was counseled on risks and benefits of the procedure and elects to proceed. Hematoma block was used for anesthesia, 6 cc injected into hematoma. Fentanyl 75 mcg used for analgesia systemically Fracture was then reduced by me at the bedside with good pain control. recreation of the deformity and traction were used, fragments were more in anatomical alignment post procedure and confirmed on XR. Patient placed in sugar tong splint Neurovascularly intact throughout procedure. Tolerated well. Improved alignment on post reduction films, possible occult scaphoid fracture seen, patient is going to follow up with orthopedics in 2-4 days for repeat exam and further assessment. Care was discussed with Dr. Ball prior to reduction. I have participated in the care of this patient, personally examined this patient, and performed the procedure above. I have reviewed and agree with all pertinent clinical information above including history, exam, and recommendations. Kathie Garnica DO (KATHIE GARNICA DO) Course & Med Decision Making: Course & Med Decision Making Pertinent Labs and Imaging studies reviewed. (See chart for details) See HPI. Alert and oriented x4. Ambulatory with steady gait. Speaks in full clear sentences. Denies hitting her head or any neck or back pain. Denies any shortness of breath or dizziness, headache, chest pain, numbness or tingling. Radial pulse strong present. Cap refill less than 2 seconds. Skin pink warm and dry. Neurologically intact. Patient is wiggling her fingers. I spoke to Dr. Reyes he states to splint the patient in follow-up in his office. Dr. Garnica has done a joint block of the wrist and reduced the wrist. Patient placed in a sugar tong splint. Splint assessment: Neurovascularly intact post splint replacement with good fit. Patient's extremity symptoms have stabilized well they have been evaluated in the department and are appropriate for outpatient follow-up. No evidence of compartment syndrome, neurologic injury, vascular injury, open joint, open fracture, tendon laceration, or foreign body. [] (ROCHELLE CASTORENA APRN) Dragon Disclaimer: Dragon Disclaimer: This electronic medical record was generated, in whole or in part, using a voice recognition dictation system. (ROCHELLE CASTORENA APRN) Departure Departure Impression: Primary Impression: Distal radial fracture Qualified Codes: S52.532A - Colles' fracture of left radius, initial encounter for closed fracture Additional Impression: Ulna fracture Qualified Codes: S52.612A - Displaced fracture of left ulna styloid process, initial encounter for closed fracture Disposition: HOME / SELF CARE / HOMELESS Condition: STABLE Referrals: CEE PRECIADO MD (PCP) TORRIE REEYS DO Patient Instructions: Radial Fracture, Ulnar Fracture Additional Instructions: Follow-up with Dr. Reyes make an appointment this coming up week. Use ice and elevation for your arm. Ibuprofen or Tylenol with codeine for your pain. Number this medication will make you sleepy so do not do any yard work or drive with this medication. Scripts Acetaminophen With Codeine (ACETAMINOPHEN-COD #3 TABLET) 1 Each Tablet 1 TAB PO PRN Q6HRS PRN for PAIN, #25 TAB Prov: ROCHELLE CASTORENA APRN 06/08/21 ROCHELLE CASTORENA APRN Jun 08, 2021 16:36 KATHIE GARNICA DO Jun 08, 2021 17:35
[2021-06-08] MEDS ORDERED: LIDOCAINE 1% Multi-Dose 20 ML VIAL. ONE (16:57)
[2021-06-08] MEDS ORDERED: fentaNYL PF VIAL 100 MCG/2 ML VIAL IVP ONE (17:00)
[2021-06-08 17:15] VITALS: BP 173/76
[2021-06-08] MEDS ORDERED: ACET1TAB33 PO (17:28)
--- NOTE | 2021-06-08 17:48 | RAD ---
EXAMINATION: Left wrist radiograph. VIEWS: 5 COMPARISON: Same day radiograph INDICATION:86 years, Female, post reduction. FINDINGS: Redemonstrated impacted distal radial fracture with slightly improved alignment, status post reductio n. Similar mildly displaced comminuted ulnar styloid fracture. Ill-defined lucent line with cortical irregularity along the distal pole medial scaphoid seen on AP view only. Diffuse soft tissue swelling . IMPRESSION: 1. Slightly improved alignment of the impacted distal radial fracture, status post reduction. 2. Similar mild displaced comminuted ulnar styloid fracture. 3. Ill-defined lucent line with cortical irregularity along the distal pole medial scaphoid seen on A P view only, may be degenerative in nature or nondisplaced fracture. Recommend follow-up with scaphoi d view radiograph. Electronically signed by: Ramy Merchant MD (06/08/2021 5:46 PM) ANAHI
== END 2021-06-08 18:02 | disposition home or self-care (01) ==
LOC: ER 15:57
DX: S52.532A Colles' fracture of left radius, initial encounter for closed fracture (principal); S52.612A Displaced fracture of left ulna styloid process, initial encounter for closed fracture; I10 Essential (primary) hypertension; E03.9 Hypothyroidism, unspecified; Z95.0 Presence of cardiac pacemaker; Z88.0 Allergy status to penicillin; Z88.1 Allergy status to other antibiotic agents; Z88.2 Allergy status to sulfonamides; W18.39XA Other fall on same level, initial encounter; Y93.89 Activity, other specified; Y92.89 Other specified places as the place of occurrence of the external cause; Y99.8 Other external cause status
CPT/HCPCS: 25605; 73100; 73120; 99284; J3010

== ENCOUNTER → 2021-11-13 | Outpatient (CLI) | payer MEDICARE ==
[~2021-11-13] MED LIST changes: +ACET1TAB56 PO
--- NOTE | 2021-11-14 08:28 | RAD ---
Bilateral lower extremity venous duplex study 11/13/2021 3:20 PM Clinical History: Bilateral leg pain, burning. Technique: Using a combination of real time ultrasound imaging and color-flow and pulse Doppler imagi ng techniques along with graded compression and augmentation, duplex evaluation of the deep venous sy stem of the both lower extremities was performed. Multiple images were obtained. Findings: There is no sonographic evidence of deep venous thrombosis involving the visualized deep ve nous structures of either lower extremity. Impression: No evidence of deep venous thrombosis involving either lower extremity Electronically signed by: Ed Clinton MD (11/14/2021 8:26 AM) [id number]
== END ==
LOC: US 14:44
PROVIDERS: ATTEND Psychiatry & Neurology Neurology with Special Qualifications in Child Neurology
DX: M79.604 Pain in right leg (principal); M79.605 Pain in left leg; R20.8 Other disturbances of skin sensation
CPT/HCPCS: 93970

== ENCOUNTER → 2021-11-14 | Outpatient (CLI) | payer MEDICARE ==
--- NOTE | 2021-11-14 12:44 | RAD ---
11/14/2021 LOWER EXTREMITY DUPLEX ARTERY ULTRASOUND Indication: Reason: PAD; leg pain-Claudication L left greater than right per patient. Comparison: None available Procedure: Arterial 2D and duplex images are obtained of the lower extremity arteries. Findings: There is diffuse atherosclerotic vascular disease. The right common femoral artery and prof unda artery are grossly patent. There is apparent narrowing of the proximal right SFA with subsequent monophasic waveforms distal to this. Possible moderate stenosis right popliteal artery also seen. Al l 3 tibial vessels on the right appear to be grossly patent. On the left common femoral artery is grossly patent. Profunda artery is grossly patent. There is occl usion of the left SFA with some filling of collaterals. There is reconstitution of the distal SFA wit h blunted monophasic waveforms. The peroneal artery is grossly patent calcified. All 3 tibial vessels appear to be grossly patent on the left, though the severity of inflow disease limits evaluation. IMPRESSION: 1. 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 Probable hemodynamically significant right SFA stenosis. 3. The findings and history suggest this patient could likely benefit from Conventional Angiography a nd possible attempted endovascular reconstruction by an endovascular specialist. If desired, we would be happy to see them in our IR clinic or discuss it further at [phone] . Referral can also be m juan antonio by faxing written referral to [phone] Electronically signed by: Ed Clinton MD (11/14/2021 12:41 PM) [id number]
== END ==
LOC: US 10:57
PROVIDERS: ATTEND Psychiatry & Neurology Neurology with Special Qualifications in Child Neurology
DX: I70.213 Atherosclerosis of native arteries of extremities with intermittent claudication, bilateral legs (principal)
CPT/HCPCS: 93925

== ENCOUNTER → 2021-11-28 | Outpatient (CLI) | payer MEDICARE ==
--- NOTE | 2021-11-28 15:56 | CARD ---
MR#: [id number] Date of Study: 11/28/2021 Ordering Physician: STANLEY PERERA, Referring Physician: STANLEY PERERA Tech: Pamela Moran [facility] APPROVED REPORT EXAM: Two-dimensional and M-mode echocardiogram with Doppler and color Doppler. Other Information Quality : AverageHR: 80bpm Rhythm : Pacemaker INDICATION Arrhythmia 2D DIMENSIONS RVDd2.4 (2.9-3.5cm)Left Atrium(2D)3.4 (1.6-4.0cm) IVSd1.0 (0.7-1.1cm)Aortic Root(2D)3.1 (2.0-3.7cm) LVDd4.8 (3.9-5.9cm)LVOT Diameter1.8 (1.8-2.4cm) PWd0.8 (0.7-1.1cm)LVDs2.5 (2.5-4.0cm) FS (%) 48.0 %SV86.4 ml LVEF(%)79.3 (>50%) Aortic Valve AoV Peak Eder.125.7cm/sAoV VTI27.9cm AO Peak GR.6.3mmHgLVOT Peak Eder.88.8cm/s AO Mean GR.3mmHgAVA (VMAX)1.73cm2 Mitral Valve MV E Bptlwsbu30.0cm/sMV DECEL SVRA116tt MV A Bfdmwjcw85.8cm/sE/A Ratio1.0 LEFT VENTRICLE The left ventricle is normal size. There is normal left ventricular wall thickness. The left ventricu lar systolic function is normal. Estimated ejection fraction 55-60%. There is normal LV segmental wa ll motion. The left ventricular diastolic function and filling is normal for age. RIGHT VENTRICLE The right ventricle is normal size. There is normal right ventricular wall thickness. The right ventr icular systolic function is normal. ATRIA The left atrium size is normal. The right atrium size is normal. The interatrial septum is intact wit h no evidence for an atrial septal defect or patent foramen ovale as noted on 2-D or Doppler imaging. AORTIC VALVE The aortic valve is normal in structure and function. Doppler and Color Flow revealed no significant aortic regurgitation. There is no significant aortic valvular stenosis. MITRAL VALVE The mitral valve is normal in structure and function. There is no evidence of mitral valve prolapse. There is no mitral valve stenosis. Doppler and Color-flow revealed trace mitral regurgitation. TRICUSPID VALVE The tricuspid valve is normal in structure and function. Doppler and Color Flow revealed no tricuspid valve regurgitation noted. There is no tricuspid valve stenosis. PULMONIC VALVE The pulmonary valve is normal in structure and function. Doppler and Color Flow revealed no pulmonic valvular regurgitation. GREAT VESSELS The aortic root is normal in size. The ascending aorta is normal in size. The IVC is normal in size a nd collapses >50% with inspiration. PERICARDIAL EFFUSION There is no evidence of significant pericardial effusion. Critical Notification Critical Value: No <Conclusion> The left ventricular systolic function is normal. Estimated ejection fraction 55-60%. There is normal LV segmental wall motion. Pacer wire noted RA/RV. Trace mitral regurgitation. There is no evidence of significant pericardial effusion. Signed by : Stanley Perera, Electronically Approved : 11/28/2021 15:56:22
== END ==
LOC: ECHO 14:51
PROVIDERS: ATTEND Internal Medicine Cardiovascular Disease
DX: I49.5 Sick sinus syndrome (principal)
CPT/HCPCS: 93306; C8929

== ENCOUNTER 2022-01-01 07:03 | Outpatient (CLI) | payer MEDICARE ==
[~2022-01-01] VITALS: Ht 160 cm; Wt 71.0 kg
[2022-01-01 07:48] LABS: BASO % 1 % (0-3); EOS # 0.1 x10^3/uL (0.0-0.7); EOS % 1 % (0-3); HEMATOCRIT 36.1 % (36.0-47.0); HEMOGLOBIN 12.3 g/dL (12.0-15.5); LYMPH # 1.3 x10^3/uL (1.0-4.8); LYMPH % 25 % (24-48); MEAN CORPUSCULAR HEMOGLOBIN 31 pg (25-35); MEAN CORPUSCULAR HGB CONC 34 g/dL (31-37); MEAN CORPUSCULAR VOLUME 91 fL (79-100); MONO # 0.6 x10^3/uL (0.0-1.1); MONO % 11 % (0-9); NEUT # 3.2 x10^3/uL (1.8-7.7); NEUT % 62 % (31-73); PLATELET COUNT 246 x10^3/uL (140-400); RED BLOOD COUNT 3.96 x10^6/uL (3.50-5.40); RED CELL DISTRIBUTION WIDTH 13.4 % (11.5-14.5); WHITE BLOOD COUNT 5.1 x10^3/uL (4.0-11.0)
[2022-01-01 07:56] LABS: CALCIUM 8.6 mg/dL (8.5-10.1); CREATININE 1.1 mg/dL (0.6-1.0); GFR 47.2
[2022-01-01 07:57] LABS: PROTHROMBIN TIME PATIENT 13.7 SEC (11.7-14.0)
[2022-01-01] MEDS ORDERED: APIX2.5T PO (08:01)
--- NOTE | 2022-01-01 08:12 | NUR ---
Patient did not hold 2.5 mg Eliquis, patient took this last night. Dr. Clinton came over and explained procedure and risks to patient and her daughter. Procedure rescheduled for January 03 at 0830. Patient instructed to hold her Eliquis until after procedure.
== END 2022-01-01 08:16 | disposition home or self-care (01) ==
LOC: INTRAD 07:03
PROVIDERS: ATTEND Surgery
DX: I73.9 Peripheral vascular disease, unspecified (principal); Z53.8 Procedure and treatment not carried out for other reasons; I48.91 Unspecified atrial fibrillation; G47.30 Sleep apnea, unspecified; I10 Essential (primary) hypertension; K21.9 Gastro-esophageal reflux disease without esophagitis; E03.9 Hypothyroidism, unspecified; M19.90 Unspecified osteoarthritis, unspecified site; F32.9 Major depressive disorder, single episode, unspecified; Z90.710 Acquired absence of both cervix and uterus; Z98.890 Other specified postprocedural states; Z79.899 Other long term (current) drug therapy; Z79.82 Long term (current) use of aspirin; Z88.0 Allergy status to penicillin; Z88.1 Allergy status to other antibiotic agents; Z88.8 Allergy status to other drugs, medicaments and biological substances
CPT/HCPCS: 36415; 80048; 85025; 85610